=== PATIENT | male | born 1990 | race Caucasian/White ===

== ENCOUNTER 2016-12-09 09:44 | Emergency (ER) | payer SELFPAY ==
--- NOTE | 2016-12-09 10:04 | RAD ---
LEFT CLAVICLE TWO VIEWS: HISTORY: Left clavicle injury. FINDINGS: Acromioclavicular alignment is maintained. No acute fracture or dislocation is evident. IMPRESSION: No acute osseous abnormalities are demonstrated. POS: [facility]
[2016-12-09] MEDS ORDERED: Ketorolac Tromethamine 30 MG/ML VIAL ONE ×2 (10:48→10:49)
== END 2016-12-09 11:03 | disposition home or self-care (01) ==
LOC: ERS 09:44
DX: M25.512 Pain in left shoulder (principal); F41.9 Anxiety disorder, unspecified; W18.30XA Fall on same level, unspecified, initial encounter
CPT/HCPCS: 96372; J1885

== ENCOUNTER 2018-04-07 09:56 | Outpatient (CLI) | payer OTHER ==
--- NOTE | 2018-04-07 13:42 | MRI ---
LEFT KNEE MRI WITHOUT IV CONTRAST: Date: 04/07/18 HISTORY: S83. 512A, sprain of ACL left knee. Kicked in left knee several months ago, hearing a pop. FINDINGS: Multiplanar, multisequence MRI examination of the left knee is performed. FINDINGS: There is evidence for a mid ACL tear. There is a flap tear of the lateral meniscus at the level of th e body and extending into the anterior horn with a displaced meniscal flap anteriorly. The medial men iscus demonstrates very slight blunting of the free edge at the posterior root, possibly a very subtl e free edge tear. Posterior cruciate ligament appears intact. Medial and lateral collateral ligament complexes are intact. Quadriceps and patellar tendons and extensor mechanism are unremarkable. No sig nificant abnormal marrow edema or acute osteochondral defect. IMPRESSION: Evidence for mid ACL tear. Displaced flap tear of the lateral meniscus involving the body and anterio r horn. Very slight blunting of the free edge of the posterior root of the medial meniscus. No eviden ce for other significant acute internal derangement. POS: [facility]
== END 2018-04-07 09:57 | disposition home or self-care (01) ==
LOC: BICMRI 09:56
DX: S83.512A Sprain of anterior cruciate ligament of left knee, initial encounter (principal)

== ENCOUNTER 2018-04-15 07:20 | Emergency (ER) | payer OTHER ==
[2018-04-15] MEDS ORDERED: Ketorolac Tromethamine 60 MG/2 ML VIAL ONE (07:53)
== END 2018-04-15 07:59 | disposition left against medical advice (07) ==
LOC: ERS 07:20
DX: M25.562 Pain in left knee (principal); F41.9 Anxiety disorder, unspecified; Z79.899 Other long term (current) drug therapy
CPT/HCPCS: 99282; J1885

== ENCOUNTER 2018-05-01 06:07 | Observation (INO) | payer OTHER ==
[2018-04-29 10:01] VITALS: BMI 28.8
[2018-05-01] MEDS ORDERED: Midazolam HCl 2 mg/2 ml Vial ONE ×3 (06:22→09:59)
[2018-05-01] MEDS ORDERED: Fentanyl 100 MCG/2 ML VIAL ONE ×6 (06:22→10:43)
[2018-05-01] MEDS ORDERED: Lidocaine 1% (PF) 30 ML VIAL ONE ×2 (06:32→10:18)
[2018-05-01] MEDS ORDERED: HYDROcodone/Acetaminophen 7.5/325 mg Tablet PO PRN ×2 (09:22)
[2018-05-01] MEDS ORDERED: Methocarbamol 500 MG TAB PO PRN (09:22)
[2018-05-01] MEDS ORDERED: diphenhydrAMINE 50 MG CAP PO PRN (09:22)
[2018-05-01] MEDS ORDERED: Ondansetron PF 4 MG/2 ML Vial IVP PRN (09:22)
[2018-05-01] MEDS ORDERED: traMADol HCl 50 MG TAB PO PRN ×3 (09:22→10:38)
[2018-05-01] MEDS ORDERED: Bisacodyl 10 MG SUPP PR PRN (09:22)
[2018-05-01] MEDS ORDERED: Acetaminophen 500 MG TAB PO PRN (09:22)
[2018-05-01] MEDS ORDERED: Milk Of Magnesia 30 ML UDCUP PO PRN (09:22)
[2018-05-01] MEDS ORDERED: ALPRAZolam 1 MG TAB PO PRN (09:25)
[2018-05-01] MEDS ORDERED: Sodium Chloride 0.9% 1,000 ML IV SCH (09:30)
[2018-05-01] MEDS ORDERED: Promethazine HCl 25 MG/ML VIAL ONE (09:42)
--- NOTE | 2018-05-01 10:06 | OP ---
DATE OF PROCEDURE: 05/01/2018 PREOPERATIVE DIAGNOSIS: Left knee anterior cruciate ligament tear and lateral meniscus tear. POSTOPERATIVE DIAGNOSIS: Left knee anterior cruciate ligament tear and lateral meniscus tear. PROCEDURE PERFORMED: 1. Left leg exam under anesthesia. 2. Left knee arthroscopy with arthroscopically assisted ACL reconstruction using autologous patellar tendon graft. ASSISTANT UNIT FORESTER: Blaise Knott PA-C BLOOD LOSS: Minimal. COMPLICATIONS: None. ANESTHESIA: He did have a general anesthetic as well as a preoperative block. IMPLANTS: Our implants are 7 x 25 metal interference screw on the femur and we used a bicortical screw with a washer on the tibia. DISPOSITION: He did go to recovery room in stable condition. INDICATIONS: This 27-year-old male comes in after injuring his knee doing some mixed martial art workouts. The patient was found to have an ACL tear as well as lateral meniscus damage on his MRI scan. This time he opted to have surgery. DESCRIPTION OF PROCEDURE: After all appropriate consent forms were explained and signed, he was taken to the operating room and at time was given general anesthetic. Once anesthesia was appropriate, exam under anesthesia commenced and showed him to have full range of motion. Stable to varus and valgus stress. He had a positive Shravan's and a positive pivot. At this time, tourniquet was placed on the left thigh and leg was placed in arthroscopic leg anne. The limb was then prepped and draped in standard surgical fashion. The limb was exsanguinated and the tourniquet was taken up to 300 mmHg. A 10 blade was used to incise down through skin. Bovie was used to coagulate any brisk venous bleeding. A new blade was used to take the paratenon off the underlying patellar tendon. A double 10 blade saw and osteotome were used to harvest the graft and on the back table, this was made so that both bone plugs were size 10. We loosely closed our graft site with multiple interrupted Vicryl sutures. Inferolateral portal was then established. Scope was placed into the knee joint. A needle localization technique was then used to make a medial working portal. Diagnostic arthroscopy commenced in the notch. ACL was found to be torn. PCL was intact. Patellofemoral joint was in good condition. Medial compartment showed femur, tibia, and medial meniscus to be intact upon probing. The lateral compartment showed the lateral meniscus to have some damage not only in the anterior horn, but also in the posterior horn, but at this time, he had already had some good healing tissue in place and was felt to be stable. Therefore, this was left alone. Gutters were swept through and no loose bodies were noted. At this time, notchplasty was performed and once this was done, we then flexed the knee up and through the medial portal, a pin was placed up and out the anterolateral thigh. Reamer was used to ream to a depth of approximately 30 mm. All loose bony and cartilaginous debris was then removed from the knee joint at this time. We then placed our tibial guide set at 55 degrees into the knee. A pin was placed up into the knee joint. At this time, we then used a 10 mm reamer to ream our tibial tunnel. Again, all loose bony and cartilaginous debris was removed from the knee joint. The edges were smoothed off with a rasp as well as a kim. At this time, we went dry. We then flexed the knee up one more time and placed our passing pin up and out the thigh one more time in order to pull into the knee joint a passing suture. This was used to pull the graft up into place. A 7 x 25 metal interference screw was then used to fix our femoral tunnel. Once this was done, we then went to doing our tibial side. In essentially full extension, the tibia was drilled, tapped and then a bicortical screw with a smooth washer was placed. The tibial sutures were wrapped around this with the posterior drawer being applied. Once this was done, we then tightened our screw and we then checked our range of motion. Three degrees of hyperextension were noted. Full flexion was noted under direct visualization. Once this was accomplished, we then removed the scope and drained the knee. We then went about bone grafting our patellar and tibial sites. We then ran a Vicryl to close our paratenon layer and we then used 2-0 Vicryl and surgical evgeny on skin. Bulky sterile dressing was then applied. Tourniquet was let down and the toes pinked up nicely. The patient was then awakened and was taken to the recovery room in stable condition. All counts were correct at the end of the case and he did receive preoperative IV antibiotics. Job ID: [id number]
[2018-05-01] MEDS ORDERED: HYDROcodone/Acetaminophen 10/325 mg Tablet PO PRN (10:38)
[2018-05-01] MEDS ORDERED: Ropivacaine 0.2% 550 ML 550 ML NERVE BLCK SCH (10:38)
[2018-05-01] MEDS ORDERED: Zolpidem Tartrate 5 MG TAB PO PRN (10:38)
[2018-05-01] MEDS ORDERED: Promethazine HCl 25 MG/ML VIAL IM PRN (10:38)
[2018-05-01] MEDS: Morphine 4 MG/ML VIAL SLOW IVP PRN ×5 (11:59→23:39)
[2018-05-01] MEDS ORDERED: Ketorolac Tromethamine 30 MG/ML VIAL IVP SCH ×2 (12:00)
[2018-05-01] MEDS: Ketorolac Tromethamine 30 MG/ML VIAL IVP SCH ×2 (14:05→20:24)
[2018-05-01] MEDS ORDERED: Ropivacaine 0.5% HCl/PF (150 MG/30 ML VIAL) ONE (14:06)
[2018-05-01] MEDS ORDERED: Bupivacaine HCl 0.5%/Epinephrine 1:200,000/PF 30 ml Vial ONE (14:06)
[2018-05-01] MEDS ORDERED: Ropivacaine 0.2% HCl/PF (40 MG/20 ML VIAL) ONE (14:06)
[2018-05-01] MEDS: CEFAZOLIN 2 GM in Premix Bag 1 BAG IVPB SCH ×2 (14:57→23:39)
[2018-05-01] MEDS ORDERED: Ketorolac Tromethamine 30 MG/ML VIAL ONE (15:49)
[2018-05-01] MEDS ORDERED: Lidocaine 1% PF 5 ML VIAL ONE (15:49)
[2018-05-01] MEDS ORDERED: PROPOFOL 200 MG/20 ML VIAL ONE (15:49)
[2018-05-01] MEDS ORDERED: Dexamethasone 20 MG/5 ML VIAL ONE (15:49)
[2018-05-01] MEDS ORDERED: Ondansetron PF 4 MG/2 ML Vial ONE (15:49)
[2018-05-01] MEDS: HYDROcodone/Acetaminophen 10/325 mg Tablet PO PRN ×2 (16:18→20:25)
[2018-05-01] MEDS: Famotidine 20 MG TAB PO SCH (20:26)
[2018-05-02] MEDS: Ondansetron PF 4 MG/2 ML Vial IVP PRN ×2 (00:25→06:26)
[2018-05-02] MEDS: HYDROcodone/Acetaminophen 10/325 mg Tablet PO PRN ×3 (00:30→09:09)
[2018-05-02] MEDS: Ketorolac Tromethamine 30 MG/ML VIAL IVP SCH ×2 (02:49→08:28)
[2018-05-02] MEDS: Morphine 4 MG/ML VIAL SLOW IVP PRN ×3 (02:52→07:28)
[2018-05-02] MEDS: Famotidine 20 MG TAB PO SCH (08:28)
[2018-05-02] MEDS: Morphine 2 MG/ML SYRINGE SLOW IVP PRN ×2 (09:43→11:59)
[2018-05-02 14:21] VITALS: BP 144/78; TEMP 98.3
== END 2018-05-02 13:30 | disposition home or self-care (01) ==
LOC: SDC 06:07 → 3SE 09:22
PROVIDERS: ADMIT Orthopaedic Surgery; ATTEND Orthopaedic Surgery
PROC: 0MRP47Z Replacement of Left Knee Bursa and Ligament with Autologous Tissue Substitute, Percutaneous Endoscopic Approach (ICD-10-PCS; principal; 2018-05-01)
PROC: 0LBR4ZZ Excision of Left Knee Tendon, Percutaneous Endoscopic Approach (ICD-10-PCS; 2018-05-01)
DX: S83.512A Sprain of anterior cruciate ligament of left knee, initial encounter (principal); S83.282A Other tear of lateral meniscus, current injury, left knee, initial encounter; F41.9 Anxiety disorder, unspecified; Z98.890 Other specified postprocedural states; Y93.75 Activity, martial arts
CPT/HCPCS: 96365; 96366; 96375; 96376; A4306; C1713; G0378; J0670; J1100; J1885; J2001; J2250; J2270; J2405; J2550; J2704; J2795; J3010

== ENCOUNTER 2018-06-27 14:45 | Emergency (ER) | payer OTHER ==
[2018-06-27] MEDS ORDERED: Bacitracin Zinc 1 Packet ONE (15:24)
--- NOTE | 2018-06-27 16:05 | CT ---
CT HEAD WITHOUT IV CONTRAST COMPARISON: 11/29/2012 HISTORY: Headache post fall. Posterior scalp hematoma. 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 However, t his is a stable finding compared to the prior exam as well as a prior study in 2012 and is likely developmental in origin. There is no evidence of an acute infarction, hemorrhage, mass effect, or mid line shift. The ventricular system is normal in size, shape, and position. There is mucosal thickening partially imaged within the right sphenoid sinus. Mastoid air cells are c lear. Osseous structures appear intact.No calvarial fracture is seen. There is scalp soft tissue swelling s een in the right posterior lateral parietal region. IMPRESSION: 1. No acute intracranial abnormality demonstrated. 2. Right parietal scalp hematoma.
--- NOTE | 2018-06-27 17:59 | RAD ---
THREE VIEWS RIGHT HAND: 06/27/18 HISTORY: Fall. Hematoma. AP, lateral and oblique views right hand obtained. Three views right hand demonstrates no evidence of right hand fractures, subluxations or bone lesions. IMPRESSION: Unremarkable three views right hand. POS: [facility]
== END 2018-06-27 17:00 | disposition home or self-care (01) ==
LOC: ERS 14:45
DX: R56.9 Unspecified convulsions (principal); F41.9 Anxiety disorder, unspecified; Z79.899 Other long term (current) drug therapy
CPT/HCPCS: 70450